=== PATIENT | male | born 1970 | race Caucasian/White ===

== ENCOUNTER → 2017-11-13 | Outpatient (CLI) | payer BC ==
--- NOTE | 2017-11-13 19:39 | CT ---
EXAMINATION TYPE: CT sinus w con DATE OF EXAM: 11/13/2017 COMPARISON: NONE HISTORY: Chronic sinusitis with ALMANZA. CT DLP: 715.9 mGycm Automated exposure control for dose reduction was used. CONTRAST: CT scan of the facial bones is performed with IV Contrast, patient injected with 80 mL of Omnipaque 2 40. TECHNIQUE: CT scan of the sinuses is performed without contrast, axial images are obtained, coronal r eformatted images are also reviewed. FINDINGS: There is a blowout fracture of the medial inferior left bony orbit that contains orbital fa t. There is no fluid. This appears to be an old injury. The remainder of the orbital margins are inta ct. There is fairly normal aeration of the paranasal sinuses. There is bilateral patency of the ostio meatal complex. There is apparent surgery on the left maxillary sinus. The maxilla is intact. There a re small mucous retention cyst in the left maxillary sinus. Zygomatic arches appear normal. CONCLUSION: Small mucous retention cysts in the left maxillary sinus. Old left orbital blowout fracture.
== END | disposition home or self-care (01) ==
LOC: RADCTMAIN 18:47
PROVIDERS: ATTEND Family Medicine
DX: J34.1 Cyst and mucocele of nose and nasal sinus (principal)
CPT/HCPCS: 70487; Q9967

== ENCOUNTER 2017-12-25 10:04 | Day surgery (SDC) | payer BC ==
[2017-12-22 18:35] VITALS: BMI 33.3
[~2017-12-25 10:04] MED LIST: DEXAMETHASONE SOD PHOSPHATE 10 MG/ML 1 ML VIAL IV ONE; DEXAMETHASONE SOD PHOSPHATE 4 MG/ML 1 ML VIAL IV ONE; HYDROmorphone 0.5 MG/0.5 ML SYRINGE IVP PRN; LACTATED RINGERS 1,000 ML IV SCH; LIDOCAINE 1% 20 ML VIAL (10MG/ML) FOR IV START INTRADERMA PRN; MIDAZOLAM 2 MG/2 ML VIAL IV PRN; ONDANSETRON 4 MG/2 ML VIAL IVP ONE; SCOPOLAMINE 1.5MG/72HR PATCH TRANSDERM ONE; ceFAZolin IN SWFI 2 GM/20 ML SYRINGE IVP ONE
[2017-12-25] MEDS: OXYMETAZOLINE 0.05% NASL SPRAY 1 SPRAY BOTTLE NASAL ONE ×4 (10:33→10:58)
[2017-12-25] MEDS ORDERED: FAMOTIDINE 20 MG/2 ML VIAL IV ONE (11:03)
[2017-12-25] MEDS ORDERED: LIDOCAINE 1% INJ 10MG/ML (20 ML MDV) ONE (11:47)
[2017-12-25] MEDS ORDERED: PROPOFOL 10 MG/ML 20 ML VIAL IV ONE (11:47)
[2017-12-25] MEDS ORDERED: MIDAZOLAM 2 MG/2 ML VIAL ONE (11:47)
[2017-12-25] MEDS ORDERED: DEXAMETHASONE SOD PHOS (MDV) 100 MG/10 ML VIAL ONE (11:47)
[2017-12-25] MEDS ORDERED: fentaNYL (PF) 50 MCG/ML 2 ML AMP ONE (11:47)
[2017-12-25] MEDS ORDERED: SUCCINYLCHOLINE CHLORIDE VIAL 200 MG/10 ML VIAL IV ONE (11:47)
[2017-12-25] MEDS ORDERED: LIDOCAINE 1%-EPI 1:100,000 30 ML VIAL SUBMUCOSAL ONE (12:02)
--- NOTE | 2017-12-25 12:57 | P.OP ---
Date of Procedure: 12/25/17 Preoperative Diagnosis: Deviated nasal septum to the right severe Bilateral severe nasal inferior turbinate hypertrophy Postoperative Diagnosis: Same Procedure(s) Performed: Septoplasty with fixation Bilateral submucosal resection of the nasal inferior turbinates with outfracturing compression Anesthesia: ALICIA Surgeon: Jesus Encinas Estimated Blood Loss (ml): 10 Pathology: other (Sinonasal) Condition: stable Disposition: PACU Indications for Procedure: This patient presented to the office with persistent nasal obstruction he's had previous nasal trauma facial fractures in the past. The patient has tried nasal sprays decongestants etc. with no improvement. Surgical correction of this severe deviated nasal septum and inferior turbinate hypertrophy was recommended. All risks, benefits, and alternative therapies were discussed. Consent was obtained and all questions were answered. Operative Findings: same Description of Procedure: DESCRIPTION OF OPERATION: This patient was taken to the operative room and placed in the supine position. A general inhalation anesthetic was administered to the patient by the department of anesthesia with a functioning IV line in place. The patient was monitored throughout the entire case by the department of anesthesia. The eyes were taped shut for protection. The patient was placed in a slight reverse Trendelenburg position. The patient had previously utilize Afrin nasal spray preoperatively. The nose was evaluated and the septum lateral nasal wall and inferior turbinates were injected with lidocaine 1% with epinephrine 1 100,000 bilaterally. Approximately 10 minutes were allowed wait for full vasoconstrictive effects to take place. At this point a caudal incision was made over the caudal portion of the left septum down to the mucoperichondrium. A mucoperichondrial flap was elevated on the left side and dissection was carried with use of tunnels posteriorly. We then made a crossover incision through the cartilage to the contralateral side and for the mucoperichondrial flap development was performed to the extent of visualization on the contralateral side. After the cartilage was freed with use of several crosshatching incisions and removal of some redundant strips of septal cartilage, the septum was straightened and placed back in the midline. The septum was sutured fixated to the vomerian groove. Excellent straightening occurred and the septum was visibly straight. Incision was closed with a 40 rapid Vicryl. We utilized a running nonlocking fashion for closure of the incision. A quilting stitch was used to reapproximate the septal flaps with use of a 40 rapid Vicryl. Intranasal splints were inserted and fixated at the end of the case. We utilized Bardales nasal splints. There will be removed and the patient returns to the office. Attention was then paid to the inferior turbinates. The bilateral inferior turbinates were hypertrophic and obstructive. We entered the anterior portion of the inferior turbinates with use of a microdebrider. We remove bone and submucosal elements with use of a microdebrider bilaterally. The inferior turbinates underwent a submucosal resection with removal of submucosal tissue and bone. We obtained a much better and normal in size for breathing. The inferior turbinates were then outfractured and compressed with a [employer] nasal elevator. Excellent airway was obtained and was symmetric bilaterally. No bleeding was encountered.
[2017-12-25 13:04] VITALS: TEMP 97
[2017-12-25 13:05] VITALS: RESP 18
[2017-12-25] MEDS ORDERED: ACETAMINOPHEN TAB 325 MG TAB PO ONE (13:48)
[2017-12-25 14:22] VITALS: BP 145/88; PULSE 77
== END 2017-12-25 14:43 | disposition home or self-care (01) ==
LOC: OR 10:04
PROVIDERS: ATTEND Otolaryngology
DX: J34.2 Deviated nasal septum (principal); J34.3 Hypertrophy of nasal turbinates; G47.33 Obstructive sleep apnea (adult) (pediatric); J45.909 Unspecified asthma, uncomplicated; Z79.1 Long term (current) use of non-steroidal anti-inflammatories (NSAID); Z79.899 Other long term (current) drug therapy; Z93.0 Tracheostomy status; Z91.09 Other allergy status, other than to drugs and biological substances
CPT/HCPCS: 30520; 30140; 88300; J2250; J0330; J1100 ×2; J2405; J2001; J3010; J2704

== ENCOUNTER → 2022-01-10 | Outpatient (CLI) | payer BC ==
[2022-01-10 15:27] VITALS: BP 164/93; PULSE 79; RESP 19; TEMP 98.1
--- NOTE | 2022-01-10 15:54 | P.GSHP ---
History of Present Illness H&P Date: 01/10/22 Chief Complaint: nipple discharge Arash is a 51 year old white male with a complaint of right nipple discharge. He states it is a little growth comming out of that side, it has been for 6-8 months. It was initially longer and with a hard piece. It broke off but the residual is still present. He is not complaining of any pain. The patient does smoke marijuana. Family History: paternal cousin: leukemia Surgical History: wire mouth shut and a trach at 28 Medical History: asthma Social History: smoke: Marijuana several times a month alcohol: occasional, more in the summer nicotine: none - Constitutional Constitutional: Denies chills, Denies fever - EENT Eyes: denies blurred vision, denies pain Ears: deny: decreased hearing, tinnitus Ears, nose, mouth and throat: Denies headache, Denies sore throat - Breasts Breasts: bilateral: as per HPI - Cardiovascular Cardiovascular: Denies chest pain, Denies shortness of breath - Respiratory Respiratory: Denies cough, Denies 7 - Gastrointestinal Gastrointestinal: Denies abdominal pain, Denies diarrhea, Denies nausea, Denies vomiting - Genitourinary (Male) Genitourinary: Denies dysuria, Denies hematuria - Musculoskeletal Musculoskeletal: Denies myalgias - Integumentary Integumentary: Reports as per HPI - Neurological Neurological: Denies numbness, Denies weakness - Psychiatric Psychiatric: Denies anxiety, Denies depression - Endocrine Endocrine: Denies fatigue, Denies weight change - Hematologic/Lymphatic Comment: none - Allergic/Immunologic Allergic/Immunologic: Reports seasonal allergies Past Medical History Past Medical History: Asthma, Hearing Disorder / Deafness Additional Past Medical History / Comment(s): SL [place], TOD LT. POSS SLEEP APNEA. CHRONIC NASAL CONGESTION AND DRAINAGE, UNABLE TO BREATH OUT OF RT NARE. History of Any Multi-Drug Resistant Organisms: None Reported Past Surgical History: Orthopedic Surgery Additional Past Surgical History / Comment(s): Tracheotomy, THEN Reversal; Facial Fractures - LT EYE FX REPAIR, NASAL FX REPAIR. Past Anesthesia/Blood Transfusion Reactions: No Reported Reaction Past Psychological History: No Psychological Hx Reported Smoking Status: Never smoker Past Alcohol Use History: Occasional Additional Past Alcohol Use History / Comment(s): SMOKED 1 PACK PER WEEK, FOR FEW MONTHS, 2002. Past Drug Use History: Marijuana Additional Drug Use History / Comment(s): OCC USE - Past Family History Mother Family Medical History: No Reported History Medications and Allergies Home Medications Medication Instructions Recorded Confirmed Type Ibuprofen [Advil] 400 mg PO BID PRN 12/22/17 01/10/22 History Loratadine-Pseudoeph 5-120 mg 1 each PO Q12HR 12/22/17 01/10/22 History [Claritin-D 12 HR] Acetaminophen [Tylenol Extra 1,000 mg PO Q6H #60 tablet 12/25/17 01/10/22 Rx Strength] Ibuprofen [Motrin] 600 mg PO Q6HR PRN #60 tab 12/25/17 01/10/22 Rx B12/Levomefolate Calcium/B-6 1 cap PO DAILY 01/10/22 01/10/22 History [Foltx Tablet] Allergies Allergy/AdvReac Type Severity Reaction Status Date / Time animal dander Allergy Unknown Unverified 01/10/22 15:18 Childhood Surgical - Exam Vital Signs Temp Pulse Resp BP Pulse Ox 98.1 F 79 19 164/93 96 01/10/22 15:25 01/10/22 15:25 01/10/22 15:25 01/10/22 15:25 01/10/22 15:25 BMI: 35.8 - General no distress - Eyes normal ocular movement - Neck trachea midline - Respiratory normal expansion - Cardiovascular Rhythm: regular Heart Sounds: normal: S1, S2 - Integumentary normal turgor - Musculoskeletal normal gait - Psychiatric oriented to time, oriented to person, oriented to place, speech is normal, memory intact Breast Exam: Inspection: Small approximately 2 mm extrusion from the right nipple area Palpation: Right breast: Multiple positional exam no dominant masses or nodules of concern, small extrusion of tissue from the right nipple area Right axilla: No adenopathy of concern Left breast: Multiple positional exam of dominant masses or nodules of concern Left axilla: No adenopathy of concern Results Impression: Small extrusion of tissue from the area of the right nipple Plan: Patient was given the options of: seeing a mixing technician Having this excised surgically Following in 6 months I am uncertain as to what it is exactly but it is a cutaneous lesion at the area of the nipple and does not appear to be involving breast parenchyma. The patient would like to have this followed conservatively. He understands that if this starts to grow he should come in to be seen sooner. Cc: Dr. Brandon Mccartney
== END ==
LOC: WWCWWP 15:12
PROVIDERS: ATTEND Surgery
DX: N64.52 Nipple discharge (principal); J45.909 Unspecified asthma, uncomplicated; H91.90 Unspecified hearing loss, unspecified ear; F17.210 Nicotine dependence, cigarettes, uncomplicated; Z91.09 Other allergy status, other than to drugs and biological substances